=== PATIENT | male | born 1955 | race African-American/Black ===

== ENCOUNTER 2021-09-25 10:12 | Emergency (ER) | payer OTHER ==
--- OUTSIDE RECORDS SUMMARY | 2021-09-25 10:16 | XMS REPORT | Continuity of Care Document ---
:1955 Author Organization [facility] t Address [address] [place] [address] Care Team Providers Name Role Phone Doctor Unassigned, Name Attending Clinician Unavailable Lab, Fam Pob I Attending Clinician Unavailable Anene FOLDER INSPECTOR Attending Clinician ANENE Attending Clinician Unavailable Payers Payer Name Policy Type Policy Number Effective Date Expiration Date S ource Problems Condition Condition Condition Status Onset Resolution Last Treating Co mments Source Name Details Category Date Date Treatment Clinician Date Bipolar I Bipolar I Disease Active Uni vers disorder, disorder, 10-21 ity of most most 00:00: [place] recent recent Medical episode episode Branch (or (or current) current) depressed, depressed, severe, severe, specified specified as with as with psychotic psychotic behavior behavior Other, Other, Disease Active Univers mixed, or mixed, or 10-21 it[place] of [place] Medical nondepende nondepende Br anch nt drug nt drug abuse, abuse, continuous continuous Essential Essential Disease Active Uni vers hypertensi hypertensi 10-21 [place] y [place] Allergies, Adverse Reactions, Alerts Allergy Allergy Status Severity Reaction(s) Onset Inactive Treating Comm ents Source Name Type Date Date Clinician NO KNOWN Drug Active Univers ALLERGIE Class ity of S [facility] Social History Social Habit Start Date Stop Date Quantity Comments Source Sex Assigned At Uni versity [facility] Smoking Status Start Date Stop Date Source Unknown if ever smoked Universit y [facility] Medications Ordered Filled Start Stop Current Ordering Indication Dosage Frequency Signature Comments Components Source Medication Medication Date Date Medication? Clinician (SIG) Name Name ESCITALOPRA 2006-06 Yes Take 1 Univ ers M 20 MG 0-10 daily ity of ORAL TAB 00:00: [place] [facility] Branch LITHIUM 2006 Yes 2 Cap Oral Univ ers CARBONATE 0-10 BID ity of 300 MG ORAL 00:00: [place] CAP 00 Medical Branch HYDROCHLORO 2007 Yes 1 Tab Oral Univers THIAZIDE 25 0-10 DAILY ity of MG ORAL TAB 00:00: [place] 00 Medical Branch METOPROLOL 2007 Yes 1 Tab Oral U nivers SUCCINATE 0-10 DAILY ity of 25 MG ORAL 00:00: [place] [id number] 00 Medical Branch QUETIAPINE 2007 Yes 1 Tab Oral U nivers 100 MG ORAL 0-10 QHS ity of TAB 00:00: [place] 00 Medical Branch ESCITALOPRA 2006-06 Yes Take one Un brice M 10 MG 0-10 daily ity of ORAL TAB 00:00: [place] 00 Medical Branch ESCITALOPRA 2006-06 Yes Take 1 Univ ers M 20 MG 0-10 daily ity of ORAL TAB 00:00: [place] [id number] Medical Branch LITHIUM 2007- Yes 2 Cap Oral Univ ers CARBONATE 0-10 BID ity of 300 MG ORAL 00:00: [place] [facility] Medical Branch HYDROCHLORO 2007 Yes 1 Tab Oral Univers THIAZIDE 25 0-10 DAILY ity of MG ORAL TAB 00:00: [place] 00 Medical Branch METOPROLOL 2006-06 Yes 1 Tab Oral U nivers SUCCINATE 0-10 DAILY ity of 25 MG ORAL 00:00: [place] [facility] 00 Medical Branch QUETIAPINE 2007 Yes 1 Tab Oral U nivers 100 MG ORAL 0-10 QHS ity of TAB 00:00: [place] 00 Medical Branch ESCITALOPRA 2006-06 Yes Take one Un brice M 10 MG 0-10 daily ity of ORAL TAB 00:00: [place] 00 Medical Branch ESCITALOPRA 2006-06 Yes Take 1 Univ ers M 20 MG 0-10 daily ity of ORAL TAB 00:00: [place] 00 Medical Branch LITHIUM 2007- Yes 2 Cap Oral Univ ers CARBONATE 0-10 BID ity of 300 MG ORAL 00:00: [place] [facility] 00 Medical Branch HYDROCHLORO 2007- Yes 1 Tab Oral Univers THIAZIDE 25 0-10 DAILY ity of MG ORAL TAB 00:00: [place] [facility] METOPROLOL 2006-06 Yes 1 Tab Oral U nivers SUCCINATE 0-10 DAILY ity of 25 MG ORAL 00:00: [place] [facility] 00 Medical Branch QUETIAPINE 2007 Yes 1 Tab Oral U nivers 100 MG ORAL 0-10 QHS ity of TAB 00:00: [place] [facility] ESCITALOPRA 2006- Yes Take one Un brice M 10 MG 0-10 daily ity of ORAL TAB 00:00: [place] [facility] Procedures This patient has no known procedures. Encounters Start End Encounter Admission Attending Care Care Encounter Source Date/Time Date/Time Type Type Clinicians Facility Department ID 2020-01-06 2020-01-06 Patient Doctor [facility] [id number] Univers 00:00:00 00:00:00 Secure Msg Unassigned, PRIMARY [id number] it[id number] [facility] [id number] Ne dical [address] [place] 2020-01-03 2020-01-03 Laboratory Lab, Adc Fam Pob I [facility] [id number] Univers 08:11:03 08:31:03 Only Jennyfer Izaguirre [facility] [id number] [place]y of [place] [id number] [place] as Professio [phone] Ne dical nal [address] [place] [address] 2020-01-03 2020-01-03 Outpatient R [facility] [id number] Univers 08:20:00 08:20:00 JENNYFER ity of [facility] 2020-01-03 2020-01-03 Letter Doctor SADAF [id number] Univers 00:00:00 00:00:00 (Out) Unassigned, LINH [id number] ity of [place] [facility] [id number] [place] as [phone] [address] Results This patient has no known results.
[2021-09-25] MEDS ORDERED: NA CHLORIDE 0.9% 1,000 ML ONE (10:34)
[2021-09-25] MEDS ORDERED: ASPIRIN 81 MG CHEWABLE TABLET ONE (10:34)
[2021-09-25] MEDS ORDERED: MORPHINE 4 MG/ML SYR ONE (10:43)
[2021-09-25] MEDS ORDERED: ONDANSETRON 4 MG/2 ML VIAL ONE (10:43)
--- NOTE | 2021-09-25 10:53 | EDPHYS ---
Physician Documentation [facility] Name: Jose Hope Age: 66 yrs Sex: Male : 1955 Arrival Date: 09/25/2021 Time: 10:15 Bed 2 Private MD: Eric Duran ED Physician Isma Lewis HPI: 09/25 10:47 This 66 yrs old Black Male presents to ER via Ambulatory with complaints of High Blood christy Pressure, Chest Pain, Numbness. 10:47 The patient has elevated blood pressure and discovered this at home. Onset: The christy symptoms/episode began/occurred this morning, today. 10:48 Modifying factors: The symptoms are aggravated by activity. Associated signs and christy symptoms: Pertinent positives: weakness. Severity of symptoms: At its worst the blood pressure was moderate, in the emergency department the blood pressure is unchanged. The patient has experienced similar episodes in the past, multiple times. Historical: - Allergies: 10:31 No Known Allergies; ab2 - PMHx: 10:31 Hypertensive disorder; Hypercholesterolemia; ab2 - Immunization history:: Adult Immunizations up to date. - Social history:: Smoking status: Patient reports the use of cigarette tobacco products, smokes one pack cigarettes per day. - Family history:: not pertinent. ROS: 10:48 Constitutional: Negative for fever, chills, and weight loss, Eyes: Negative for injury, christy pain, redness, and discharge, ENT: Negative for injury, pain, and discharge, Neck: Negative for injury, pain, and swelling, Respiratory: Negative for shortness of breath, cough, wheezing, and pleuritic chest pain, Abdomen/GI: Negative for abdominal pain, nausea, vomiting, diarrhea, and constipation, Back: Negative for injury and pain, : Negative for injury, bleeding, discharge, and swelling, MS/Extremity: Negative for injury and deformity, Skin: Negative for injury, rash, and discoloration, Neuro: Negative for headache, weakness, numbness, tingling, and seizure, Psych: Negative for depression, anxiety, suicide ideation, homicidal ideation, and hallucinations, Allergy/Immunology: Negative for hives, rash, and allergies, Endocrine: Negative for neck swelling, polydipsia, polyuria, polyphagia, and marked weight changes, Hematologic/Lymphatic: Negative for swollen nodes, abnormal bleeding, and unusual bruising. 10:48 Cardiovascular: Positive for chest pain. Exam: 10:48 Constitutional: This is a well developed, well nourished patient who is awake, alert, christy and in no acute distress. Head/Face: Normocephalic, atraumatic. Eyes: Pupils equal round and reactive to light, extra-ocular motions intact. Lids and lashes normal. Conjunctiva and sclera are non-icteric and not injected. Cornea within normal limits. Periorbital areas with no swelling, redness, or edema. ENT: Nares patent. No nasal discharge, no septal abnormalities noted. Tympanic membranes are normal and external auditory canals are clear. Oropharynx with no redness, swelling, or masses, exudates, or evidence of obstruction, uvula midline. Mucous membranes moist. Neck: Trachea midline, no thyromegaly or masses palpated, and no cervical lymphadenopathy. Supple, full range of motion without nuchal rigidity, or vertebral point tenderness. No Meningismus. Chest/axilla: Normal chest wall appearance and motion. Nontender with no deformity. No lesions are appreciated. Cardiovascular: Regular rate and rhythm with a normal S1 and S2. No gallops, murmurs, or rubs. Normal PMI, no JVD. No pulse deficits. Respiratory: Lungs have equal breath sounds bilaterally, clear to auscultation and percussion. No rales, rhonchi or wheezes noted. No increased work of breathing, no retractions or nasal flaring. Abdomen/GI: Soft, non-tender, with normal bowel sounds. No distension or tympany. No guarding or rebound. No evidence of tenderness throughout. Back: No spinal tenderness. No costovertebral tenderness. Full range of motion. Male : Normal genitalia with no discharge or lesions. Skin: Warm, dry with normal turgor. Normal color with no rashes, no lesions, and no evidence of cellulitis. MS/ Extremity: Pulses equal, no cyanosis. Neurovascular intact. Full, normal range of motion. Neuro: Awake and alert, GCS 15, oriented to person, place, time, and situation. Cranial nerves II-XII grossly intact. Motor strength 5/5 in all extremities. Sensory grossly intact. Cerebellar exam normal. Normal gait. Psych: Awake, alert, with orientation to person, place and time. Behavior, mood, and affect are within normal limits. 10:58 ECG was reviewed by the Attending Physician. [facility] Vital Signs: 10:29 BP 189 / 108; Pulse 67; Resp 20; Temp 98.3(TE); Pulse Ox 99% on R/A; Weight 93.89 kg; ab2 Height 6 ft. 1 in. (185.42 cm); Pain 7/10; 10:45 BP 191 / 105; Pulse 63; Resp 14; Pulse Ox 99% on R/A; jg9 11:00 BP 186 / 106; Pulse 68; Resp 18; Pulse Ox 100% ; jg9 12:24 BP 183 / 97; Pulse 52; Resp 15; Pulse Ox 98% ; jl7 13:00 BP 193 / 101; Pulse 72; Resp 23 S; Pulse Ox 100% ; jg9 10:29 Body Mass Index 27.31 (93.89 kg, 185.42 cm) ab2 MDM: 10:24 Patient medically screened. [facility] 10:49 Data reviewed: vital signs, nurses notes, lab test result(s), EKG, radiologic studies, christy plain films. Data interpreted: patient safety attendant: rate is 67 beats/min, Pulse oximetry: is not applicable for this patient encounter. Test interpretation: by ED physician or midlevel provider: ECG, plain radiologic studies. Counseling: I had a detailed discussion with the patient and/or guardian regarding: the historical points, exam findings, and any diagnostic results supporting the discharge/admit diagnosis, lab results, radiology results. 14:06 ED course: pt refused to stay, will go home and follow up, accepts all risk, including christy , if its my time to go its my time. 09/25 10:26 Order name: Basic Metabolic Panel; Complete Time: 13:16 [facility] 09/25 10:26 Order name: CBC with Diff; Complete Time: 13:16 [facility] 09/25 10:26 Order name: LFT's; Complete Time: 13:16 christy 09/25 10:26 Order name: Magnesium; Complete Time: 13:16 christy 09/25 10:26 Order name: NT PRO-BNP; Complete Time: 13:16 [facility] 09/25 10:26 Order name: PT-INR; Complete Time: 13:16 christy 09/25 10:26 Order name: Troponin HS; Complete Time: 13:16 [facility] 09/25 10:26 Order name: Lipase; Complete Time: 13:16 [facility] 09/25 10:26 Order name: SARS-COV-2 RT PCR (Document "Date of Onset" if Symptomatic); Complete Time: [facility] 13:16 09/25 13:39 Order name: Basic Metabolic Panel [facility] 09/25 13:39 Order name: CBC with Automated Diff [facility] 09/25 13:39 Order name: Troponin High Sensitivity [facility] 09/25 10:26 Order name: XRAY Chest (1 view); Complete Time: 13:16 [facility] 09/25 10:26 Order name: EKG; Complete Time: 10:27 [facility] 09/25 13:39 Order name: CONS Physician Consult [facility] 09/25 13:39 Order name: Echo with Doppler [facility] 09/25 10:26 Order name: Cardiac monitoring; Complete Time: 10:42 [facility] 09/25 10:26 Order name: EKG - Nurse/Tech; Complete Time: 10:42 [facility] 09/25 10:26 Order name: IV Saline Lock; Complete Time: 10:42 [facility] 09/25 10:26 Order name: Labs collected and sent; Complete Time: 10:42 [facility] 09/25 10:26 Order name: O2 Sat Monitoring; Complete Time: 10:42 [facility] EC:58 Rate is 69 beats/min. Rhythm is regular. QRS [place] is Normal. [place] interval is normal. QRS christy interval is normal. QT interval is normal. No Q waves. T waves are Normal. No ST changes noted. Clinical impression: Normal ECG and No evidence of ischemia. Interpreted by me. Reviewed by me. Administered Medications: 10:41 Drug: Aspirin Chewable Tablet 324 mg Route: PO; jg9 11:05 Follow up: Response: No adverse reaction jg9 10:41 Drug: NS 0.9% 1000 ml Route: IV; Rate: 125 ml/hr; Site: right forearm; jg9 12:26 Follow up: IV Status: Infusion continued upon admission jl7 10:46 Drug: Zofran (Ondansetron) 4 mg Route: IVP; Site: right antecubital; jl7 11:21 Follow up: Response: No adverse reaction jg9 10:46 CANCELLED (Duplicate Order): morphine 4 mg IVP once; RASS on ADMIN: Combtv4, Very jl7 Agttd3, Agttd2, Rstlss1, AlertClm0, Drwsy-1, Lt Sdtn-2, Mod Sdtn-3, Dp Sdtn-4, UnArsble-5 10:46 CANCELLED (Duplicate Order): Zofran (Ondansetron) 4 mg IVP once; over 2 minutes jl7 10:47 Drug: morphine 4 mg Route: IVP; Site: right antecubital; jl7 11:21 Follow up: Response: No adverse reaction; Pain is decreased jg9 11:21 Drug: Lovenox (enoxaparin) 1 mg/kg Route: Sub-Q; Site: right lower abdomen; jg9 12:26 Follow up: Response: No adverse reaction jl7 13:00 Drug: hydrALAZINE 10 mg Route: IVP; Site: right antecubital; jl7 13:30 Follow up: Response: No adverse reaction; Blood pressure is unchanged jg9 13:00 Drug: hydrALAZINE 10 mg Route: PO; jl7 13:30 Follow up: Response: No adverse reaction; Blood pressure is unchanged jg9 Disposition Summary: 09/25/21 14:06 Discharge Ordered Location: Home(09/25/21 14:06) christy Problem: new(09/25/21 14:06) christy Symptoms: have improved(09/25/21 14:06) christy Condition: Stable(09/25/21 14:06) christy Diagnosis - Chest pain, unspecified(09/25/21 14:06) christy - Essential (primary) hypertension(09/25/21 14:06) christy - Tobacco abuse counseling(09/25/21 14:06) christy - Tobacco use(09/25/21 14:06) christy Followup: christy - With: Eric Duran MD - When: Upon discharge from the Emergency Department - Reason: Recheck today's complaints, Continuance of care, Re-evaluation by your physician Followup: christy - With: Miguel Nevarez MD - When: Upon discharge from the Emergency Department - Reason: Recheck today's complaints, Continuance of care, Re-evaluation by your physician Discharge Instructions: - Discharge Summary Sheet christy - Hypertension, Adult christy - Hypertension, Adult, [id number] christy - How to Take Your Blood Pressure, [id number] christy - Aspirin and Your Heart christy - Managing Your Hypertension christy Forms: - Medication Reconciliation Form christy - Thank You Letter christy - Antibiotic Education christy - Prescription Opioid Use christy Signatures: Dispatcher [employer] EDIsma Galindo MD MD cha Leal, Jahala RN RN jl7 Shannon Warren RN RN jg9 Oskar Dumont2 Corrections: (The following items were deleted from the chart) 10:46 10:46 morphine 4 mg IVP once; RASS on ADMIN: Combtv4, Very Agttd3, Agttd2, Rstlss1, jl7 AlertClm0, Drwsy-1, Lt Sdtn-2, Mod Sdtn-3, Dp Sdtn-4, UnArsble-5 ordered. jl7 10:46 10:46 Zofran (Ondansetron) 4 mg IVP once; over 2 minutes ordered. jl7 jl7 10:46 10:46 Zofran (Ondansetron) 4 mg IVP once; over 2 minutes ordered. jl7 jl7 14:05 10:52 Observation formerly [facility] 14:05 10:52 Jama Haynes formerly [facility] 14:05 10:52 Telemetry/MedSurg (observation) christy christy 14:05 10:52 Stable christy christy 14:05 10:52 new [facility] christy 14:05 10:52 have improved formerly [facility] 14:05 10:52 Standard christy christy 14:05 10:52 christy christy 14:05 10:52 Essential (primary) hypertension christy christy 14:05 10:52 Chest pain, unspecified christy christy 14:05 10:52 Tobacco abuse counseling christy christy 14:05 10:52 Tobacco use christy [facility]
--- NOTE | 2021-09-25 10:53 | ER ---
Nurse's Notes [facility] Name: Jose Hope Age: 66 yrs Sex: Male : 1955 Arrival Date: 09/25/2021 Time: 10:15 Bed 2 Private MD: Eric Duran Diagnosis: Chest pain, unspecified;Essential (primary) hypertension;Tobacco abuse counseling;Tobacco use Presentation: 09/25 10:29 Chief complaint: Patient states: "This morning around 9am I started having chest pain. ab2 I was having some numbness and tingling in my right arm and my fingers are going cold." Pt also states his BP was 220/120 at home. Coronavirus screen: Vaccine status: Patient reports receiving the 2nd dose of the covid vaccine. Client denies travel out of the [place] in the last 14 days. At this time, the client does not indicate any symptoms associated with coronavirus-19. Ebola Screen: Patient negative for fever greater than or equal to 101.5 degrees Fahrenheit, and additional compatible Ebola Virus Disease symptoms Patient denies exposure to infectious person. Patient denies travel to an Ebola-affected area in the 21 days before illness onset. No symptoms or risks identified at this time. Initial Sepsis Screen: Does the patient meet any 2 criteria? No. Patient's initial sepsis screen is negative. Does the patient have a suspected source of infection? No. Patient's initial sepsis screen is negative. Risk Assessment: Do you want to hurt yourself or someone else? Patient reports no desire to harm self or others. Onset of symptoms is unknown. 10:29 Method Of Arrival: Ambulatory ab2 10:29 Acuity: VÍCTOR 3 ab2 11:23 Acuity: VÍCTOR 2 jl7 Triage Assessment: 10:31 General: Appears in no apparent distress. comfortable, Behavior is calm, cooperative, ab2 appropriate for age. Pain: Complains of pain in chest. Cardiovascular: Reports chest pain, Patient's skin is warm and dry. Respiratory: Airway is patent Respiratory effort is even, unlabored, Respiratory pattern is regular, symmetrical. GI: No deficits noted. Historical: - Allergies: 10:31 No Known Allergies; ab2 - PMHx: 10:31 Hypertensive disorder; Hypercholesterolemia; ab2 - Immunization history:: Adult Immunizations up to date. - Social history:: Smoking status: Patient reports the use of cigarette tobacco products, smokes one pack cigarettes per day. - Family history:: not pertinent. Screenin:47 Abuse screen: Denies threats or abuse. Denies injuries from another. Nutritional jg9 screening: No deficits noted. Tuberculosis screening: No symptoms or risk factors identified. Fall Risk None identified. Assessment: 11:07 Pain: Pain does not radiate. Pain began 2 hours ago. jg9 11:15 Reassessment: Patient appears in no apparent distress at this time. Patient and/or jl7 family updated on plan of care and expected duration. Pain level reassessed. Patient is alert, oriented x 3, equal unlabored respirations, skin warm/dry/pink. Pain decreased rated, 3/10 at this time. Patient states feeling better. 13:30 Reassessment: Patient and/or family updated on plan of care and expected duration. Pain jg9 level reassessed. Patient is alert, oriented x 3, equal unlabored respirations, skin warm/dry/pink. Patient states feeling better. 14:00 Reassessment: Patient refusing to stay, demanded that I take out the IV and other jg9 equipment-patient reports he has not been told why he is staying so therefore he can go home and listen to the monitor beep-provider notified and went in to talk to the patient who continued to refuse to stay. Patient signed out AMA. Patient advised of the risks associated with leaving AMA up to and including -witness signature obtained from daughter who was present. Vital Signs: 10:29 BP 189 / 108; Pulse 67; Resp 20; Temp 98.3(TE); Pulse Ox 99% on R/A; Weight 93.89 kg; ab2 Height 6 ft. 1 in. (185.42 cm); Pain 7/10; 10:45 BP 191 / 105; Pulse 63; Resp 14; Pulse Ox 99% on R/A; jg9 11:00 BP 186 / 106; Pulse 68; Resp 18; Pulse Ox 100% ; jg9 12:24 BP 183 / 97; Pulse 52; Resp 15; Pulse Ox 98% ; jl7 13:00 BP 193 / 101; Pulse 72; Resp 23 S; Pulse Ox 100% ; jg9 10:29 Body Mass Index 27.31 (93.89 kg, 185.42 cm) ab2 ED Course: 10:15 Patient arrived in ED. ds1 10:15 Eric Duran MD is Private Physician. ds1 10:24 Isma Lewis MD is Attending Physician. christy 10:25 Reji Duran, RN is Primary Nurse. jl7 10:31 Triage completed. ab2 10:31 Arm band placed on right wrist. ab2 10:31 Patient maintains SpO2 saturation greater than 95% on room air. ab2 10:40 Inserted saline lock: 22 gauge in right forearm, using aseptic technique. Blood jg9 collected. 10:40 Initial lab(s) drawn, by ED staff, sent to lab. EKG done, by ED staff, reviewed by lois Lewis MD COVID swab sent to lab. 10:52 Jama Haynes MD is Hospitalizing Provider. christy 11:07 Patient has correct armband on for positive identification. Bed in low position. Call jg9 light in reach. Side rails up X 1. security monitor on. 11:32 XRAY Chest (1 view) In Process Unspecified. EDMS 14:05 Eric Duran MD is Referral Physician. christy 14:05 Miguel Nevarez MD is Referral Physician. christy 14:14 No provider procedures requiring assistance completed. jg9 Administered Medications: 10:41 Drug: Aspirin Chewable Tablet 324 mg Route: PO; jg9 11:05 Follow up: Response: No adverse reaction jg9 10:41 Drug: NS 0.9% 1000 ml Route: IV; Rate: 125 ml/hr; Site: right forearm; jg9 12:26 Follow up: IV Status: Infusion continued upon admission jl7 10:46 Drug: Zofran (Ondansetron) 4 mg Route: IVP; Site: right antecubital; jl7 11:21 Follow up: Response: No adverse reaction jg9 10:46 CANCELLED (Duplicate Order): morphine 4 mg IVP once; RASS on ADMIN: Combtv4, Very jl7 Agttd3, Agttd2, Rstlss1, AlertClm0, Drwsy-1, Lt Sdtn-2, Mod Sdtn-3, Dp Sdtn-4, UnArsble-5 10:46 CANCELLED (Duplicate Order): Zofran (Ondansetron) 4 mg IVP once; over 2 minutes jl7 10:47 Drug: morphine 4 mg Route: IVP; Site: right antecubital; jl7 11:21 Follow up: Response: No adverse reaction; Pain is decreased j9 11:21 Drug: Lovenox (enoxaparin) 1 mg/kg Route: Sub-Q; Site: right lower abdomen; jg9 12:26 Follow up: Response: No adverse reaction jl7 13:00 Drug: hydrALAZINE 10 mg Route: IVP; Site: right antecubital; jl7 13:30 Follow up: Response: No adverse reaction; Blood pressure is unchanged j9 13:00 Drug: hydrALAZINE 10 mg Route: PO; jl7 13:30 Follow up: Response: No adverse reaction; Blood pressure is unchanged j9 Outcome: 10:52 Decision to Hospitalize by Provider. [facility] 12:54 Patient left the ED. [facility] 14:06 Discharge ordered by . [facility] 14:14 AMA AMA form signed jg9 14:14 Condition: left AMA 14:16 Patient left the ED. jg9 Signatures: Dispatcher [employer] EDIsma Galindo MD MD cha Sanford, Demi ds1 Reji Duran RN RN jl7 Shannon Warren RN RN jg9 Oskar Dumont Corrections: (The following items were deleted from the chart) 11:20 11:20 Lovenox (enoxaparin) 1 mg/kg Sub-Q in right lower abdomen jg9 jg9 14:15 14:00 Reassessment: Patient refusing to stay, demanded that I take out the IV and other jg9 equipment-patient reports he has not been told why he is staying so therefore he can go home and listen to the monitor beep-provider notified and went in to talk to the patient who continued to refuse to stay. Patient signed out AMA. jg9
[2021-09-25 10:54] LABS: Absolute Lymphocytes (CBC) 3.7 K/uL (0.7-4.9); Hematocrit 48.6 % (39.6-49.0); Lymphocytes % 50.7 % (15.3-44.8); MPV 8.1 fL (7.6-11.3); Protime INR 1.05; RBC Red Blood Cell Count 5.32 M/uL (4.33-5.43)
[2021-09-25] MEDS ORDERED: ENOXAPARIN 100 MG/ML SYR SQ ONE (11:18)
[2021-09-25 11:24] LABS: ALT/SGPT 43 U/L (12-78); Albumin 3.9 g/dL (3.4-5.0); Alkaline Phosphatase 85 U/L (45-117); BUN Blood Urea Nitrogen 10 mg/dL (7-18); Bicarbonate 28 mmol/L (21-32); Bilirubin Total 0.5 mg/dL (0.2-1.0); Glucose Level 108 mg/dL (74-106); Lipase 684 U/L (73-393); NT PRO-BNP 62 pg/mL (<125); Protein, Total 8.7 g/dL (6.4-8.2); Sodium Level 139 mmol/L (136-145); Troponin High Sensitivity 12.8 pg/mL (<58.9)
[2021-09-25 11:25] LABS: AST/SGOT 30 U/L (15-37); Bilirubin Direct < 0.1 mg/dL (0-0.2); Magnesium 2.2 mg/dL (1.8-2.4); Potassium 4.3 mmol/L (3.5-5.1)
--- NOTE | 2021-09-25 11:48 | RAD REPORT ---
EXAM DESCRIPTION: RAD - Chest Single View - 09/25/2021 11:30 am CLINICAL HISTORY: CHEST PAIN Chest pain. COMPARISON: CHEST SINGLE VIEW dated 02/02/2014; CHEST PA AND LAT 2 VIEW dated 08/24/2012 FINDINGS: Portable technique limits examination quality. The lungs are grossly clear. The heart is normal in size. No displaced fractures. IMPRESSION: No acute intrathoracic process suspected.
[2021-09-25] MEDS ORDERED: HYDRALAZINE HCL 10 MG TABLET ONE (12:55)
[2021-09-25] MEDS ORDERED: HYDRALAZINE HCL 20 MG/ML VIAL ONE (12:55)
[2021-09-25] MEDS ORDERED: ACETAMINOPHEN 500 MG TAB PO PRN (13:34)
[2021-09-25] MEDS ORDERED: MORPHINE 2 MG/ML SYR IV PRN (14:05)
[2021-09-25 14:08] VITALS: TEMP 98.3
[2021-09-25 16:19] VITALS: BP 193/101; O2SAT 100
[2021-09-25] MEDS ORDERED: METOPROLOL TAR 25 MG TAB PO SCH (21:00)
[2021-09-26] MEDS ORDERED: ASPIRIN EC 81 MG TAB PO SCH (09:00)
[2021-09-26] MEDS ORDERED: ENOXAPARIN 40 MG/0.4 ML SQ SCH (09:00)
--- NOTE | 2021-09-28 09:46 | EKG ---
Test Date: 2021-09-25 Test Time: 10:37:19 Sas Programmer: DELFINO MEASUREMENT RESULTS: Intervals: Rate: 69 OR: 164 QRSD: 82 QT: 394 QTc: 422 [place]: P: 59 OR: 164 QRS: 42 T: 48 INTERPRETIVE STATEMENTS: Normal sinus rhythm Normal ECG Compared to ECG 02/02/2014 15:02:16 No significant changes Electronically Signed On 09-28-21 09:36:35 CDT by Miguel Nevarez
== END 2021-09-25 14:16 | disposition home or self-care (01) ==
LOC: ER 10:12
DX: I10 Essential (primary) hypertension (principal); Z72.0 Tobacco use; Z71.6 Tobacco abuse counseling; Z20.822 Contact with and (suspected) exposure to COVID-19
CPT/HCPCS: 96361; 93005; 85025; 80048; 36415; 83735; 85610; 80076; 84484; 83690; 83880; 71045; 96375; 96372; 96374; 99285; U0003; J0360; J1650; J7030; J2405

== ENCOUNTER 2021-11-30 08:30 | Emergency (ER) | payer OTHER ==
--- OUTSIDE RECORDS SUMMARY | 2021-11-30 08:33 | XMS REPORT | Continuity of Care Document ---
:1955 Author Organization [facility] t Address [address] [place] [id number] Care Team Providers Name Role Phone Doctor Unassigned, Name Attending Clinician Unavailable Lab, Fam Pob I Attending Clinician Unavailable Anene LION TRAINER Attending Clinician ANENE Attending Clinician Unavailable Payers [...] Active Univers ALLERGIE Class ity of [facility] Social History Social Habit Start Date Stop Date Quantity Comments Source Sex Assigned At Uni versity [facility] Smoking Status Start Date Stop Date Source Unknown if ever smoked Universit y [facility] Medications Ordered Filled Start Stop Current Ordering Indication Dosage Frequency Signature Comments Components Source Medication Medication Date Date Medication? Clinician (SIG) Name Name ESCITALOPRA 2006-06 Yes Take 1 Univ ers M 20 MG 0-10 daily ity of ORAL TAB 00:00: [place] [facility] Branch LITHIUM 2006 Yes 2 Cap Oral Univ ers CARBONATE 0-10 BID ity of 300 MG ORAL 00:00: [place] CAP 00 Medical Branch HYDROCHLORO 2007 Yes 1 Tab Oral Univers THIAZIDE 25 0-10 DAILY ity of MG ORAL TAB 00:00: [place] 00 Medical Branch METOPROLOL 2007 Yes 1 Tab Oral U nivers SUCCINATE 0-10 DAILY ity of 25 MG ORAL 00:00: [place] [id number] 00 Medical Branch QUETIAPINE 2007 Yes 1 Tab Oral U nivers 100 MG ORAL 0-10 QHS ity of TAB 00:00: [place] 00 Medical Branch ESCITALOPRA 2006-06 Yes Take one Un brice M 10 MG 0-10 daily ity of ORAL TAB 00:00: [place] 00 Medical Branch ESCITALOPRA 2006-06 Yes Take 1 Univ ers M 20 MG 0-10 daily ity of ORAL TAB 00:00: [place] [id number] Medical Branch LITHIUM 2007- Yes 2 Cap Oral Univ ers CARBONATE 0-10 BID ity of 300 MG ORAL 00:00: [place] [facility] Medical Branch HYDROCHLORO 2007 Yes 1 Tab Oral Univers THIAZIDE 25 0-10 DAILY ity of MG ORAL TAB 00:00: [place] 00 Medical Branch METOPROLOL 2006-06 Yes 1 Tab Oral U nivers SUCCINATE 0-10 DAILY ity of 25 MG ORAL 00:00: [place] [facility] 00 Medical Branch QUETIAPINE 2007 [...] ity of 300 MG ORAL 00:00: [place] [facility] 00 Medical Branch HYDROCHLORO 2007- Yes 1 Tab Oral Univers THIAZIDE 25 0-10 DAILY ity of MG ORAL TAB 00:00: [place] [facility] METOPROLOL 2006-06 Yes 1 Tab Oral U nivers SUCCINATE 0-10 DAILY ity of 25 MG ORAL 00:00: [place] [facility] 00 Medical Branch QUETIAPINE 2007 Yes 1 Tab Oral U nivers 100 MG ORAL 0-10 QHS ity of TAB 00:00: [place] [facility] ESCITALOPRA 2006- Yes Take one Un brice M 10 MG 0-10 daily ity of ORAL TAB 00:00: [place] [facility] Procedures This patient has no known procedures. Encounters Start End Encounter Admission Attending Care Care Encounter Source Date/Time Date/Time Type Type Clinicians Facility Department ID 2020-01-06 2020-01-06 Patient Doctor [facility] [id number] Univers 00:00:00 00:00:00 Secure Msg Unassigned, PRIMARY [id number] ity of [place] [id number] [phone] [place] dical [address] [place] 2020-01-03 2020-01-03 Laboratory Lab, Adc Fam Pob I [facility] [id number] Univers 08:11:03 08:31:03 Only Jennyfer Izaguirre [facility] [id number] ity of [place] [id number] [place] as Professio [phone] Ak dical nal [address] [place] [address] 2020-01-03 2020-01-03 Outpatient R [facility] [id number] Univers 08:20:00 08:20:00 JENNYFER ity of [facility] 2020-01-03 2020-01-03 Letter Doctor SADAF [id number] Univers 00:00:00 00:00:00 (Out) Unassigned, LINH [id number] ity of [place] [facility] [id number] Eze as [phone] [address] Results This patient has no known results.
[2021-11-30 09:19] LABS: Absolute Lymphocytes (CBC) 3.2 K/uL (0.7-4.9); Hematocrit 47.9 % (39.6-49.0); Lymphocytes % 31.5 % (15.3-44.8); MPV 8.2 fL (7.6-11.3)
[2021-11-30 09:27] LABS: Protime INR 1.13
[2021-11-30 09:38] LABS: Bilirubin Direct 0.2 mg/dL (0-0.2); Bilirubin Total 0.6 mg/dL (0.2-1.0); Magnesium 2.1 mg/dL (1.8-2.4); Potassium 3.4 mmol/L (3.5-5.1); Protein, Total 8.8 g/dL (6.4-8.2)
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
[2021-11-30 15:21] VITALS: TEMP 98.3
[2021-11-30 15:31] VITALS: O2SAT 96
[2021-11-30 15:33] VITALS: BP 169/102
--- NOTE | 2021-12-01 11:09 | EKG ---
Test Date: 2021-11-30 Test Time: 08:54:41 Facetor: BP MEASUREMENT RESULTS: Intervals: Rate: 90 CO: 144 QRSD: 80 QT: 372 QTc: 455 [place]: P: 43 CO: 144 QRS: 7 T: 46 INTERPRETIVE STATEMENTS: Normal sinus rhythm Possible Left atrial enlargement Left ventricular hypertrophy with repolarization abnormality Abnormal ECG Compared to ECG 09/25/2021 10:37:19 Left ventricular hypertrophy now present Early repolarization now present Electronically Signed On 12-01-21 11:05:09 CDT by Miguel Nevarez
== END 2021-11-30 14:57 | disposition home or self-care (01) ==
LOC: ER 08:30
DX: R07.9 Chest pain, unspecified (principal); I10 Essential (primary) hypertension; E78.00 Pure hypercholesterolemia, unspecified; F31.9 Bipolar disorder, unspecified; F17.210 Nicotine dependence, cigarettes, uncomplicated
CPT/HCPCS: 36415; 71045; 80048; 80076; 83735; 83880; 84484; 85025; 85610; 93005; 99284

== ENCOUNTER 2022-11-26 07:47 | Emergency (ER) | payer OTHER ==
--- OUTSIDE RECORDS SUMMARY | 2022-11-26 07:50 | XMS REPORT | Continuity of Care Document ---
:1955 Author Organization [facility] t Address [address] [place] [address] Care Team Providers Name Role Phone CLAUDIA SINGH Primary Care Physician Unavailable MIREYA HERNÁNDEZ Attending Clinician Unavailable NITESH SINGH Attending Clinician Unavailable Nitesh Singh DO Attending Clinician KEVIN RUSSO Attending Clinician Unavailable Kevin Russo MD Attending Clinician Doctor Unassigned, [place] Attending Clinician Unavailable Lab, Adc Fam Pob I Attending Clinician Unavailable Lindsay Tripp Attending Clinician LINDSAY IZAGUIRRE Attending Clinician Unavailable VIVI CLAIRE Attending Clinician Unavailable NITESH SINGH Admitting Clinician Unavailable JOY CHAPMAN Admitting Clinician Unavailable VIVI PATEL Admitting Clinician Unavailable Payers Payer Name Policy Type Policy Number Effective Date Expiration Date Constance RENE/[facility] DUAL [id number] 2022 00:00:00 COMP HMO D SNP [facility] [place] [id number] 2013 00:00:00 PLUS Problems Condition Condition Condition Status Onset Resolution Last Treating Co mments Source Name Details Category Date Date Treatment Clinician Date Bipolar I Bipolar I Disease Active 2006- Uni vers disorder, disorder, 5-04 ity of most most 00:00: [place] recent Medical episode episode Branch (or (or [...] Drug Active Univers ALLERGIE Class ity of [facility] Social History Social Habit Start Date Stop Date Quantity Comments Source Exposure to 2022-05-05 2022-05-15 Not sure [facility] SARS-CoV-2 (event) 00:00:00 11:14:00 Medica l Branch Sex Ass[birth year] [facility] 00:00:00 00:00:00 Medical Branch Smoking Status Start Date Stop Date Source Tobacco smoking consumption [facility] Medical unknown Branch Medications Ordered Filled Start Stop Current Ordering Indication Dosage Frequency Signature Comments Components Source Medication Medication Date Date Medication? Clinician (SIG) Name Name aspirin 2021-06 Yes 325mg 325 mg, Univer s tablet 325 07-16 Oral, ity of mg 15:00: DAILY, [place] First dose Medical on [place] Branch 05/16/22 at 0900, Until Discontinu ed, Routine cloNIDine 2021-06- No .1mg 0.1 mg, Univ ers (CATAPRES) 07-15 Oral, ity of tablet 0.1 18:15: 18:29 ONCE, 1 Eze as mg 00 :00 dose, On Medical Sat Branch 05/15/22 at 1215, STAT predniSONE 2021-06 Yes [id number] 60mg Take 3 Univers 20 mg 0-10 tablets by ity of tablet 00:00: mouth every Medical morning. Branch predniSONE 2021-06 Yes [id number] 60mg Take 3 Univers 20 mg 0-10 tablets by ity of tablet 00:00: mouth [place] 00 every Medical morning. Branch diphenhydrA 2021-06- No [id number] 25mg Take 1 Univers MINE 0-10 10-16 tablet by ity of (BENADRYL 00:00: 04:59 mouth [place] ALLERGY) 25 00 :00 every 6 Medic al mg tablet (six) Branch hours as needed for Allergies for up to 5 days. permethrin 2021-06- No [id number] Apply to Univers 1 % lotion 0-10 10-11 area(s) ity o f 00:00: 04:59 once now [place] 00 :00 for 1 Medical dose. Branch follow package directions ESCITALOPRA 2006-06 Yes Take 1 Univ ers M 20 MG 0-10 daily ity of ORAL TAB 00:00: [place] [address] Medical Branch LITHIUM 2006-06 Yes 2 Cap Oral Univ ers CARBONATE 0-10 BID ity of 300 MG ORAL 00:00: [place] [address] Medical Branch HYDROCHLORO 2006-06 Yes 1 Tab Oral Univers THIAZIDE 25 0-10 DAILY ity of MG ORAL TAB 00:00: [place] [address] Medical Branch METOPROLOL 2006-06 Yes 1 Tab Oral U nivers SUCCINATE 0-10 DAILY ity of 25 MG ORAL 00:00: [place] [address] 00 Medical Branch QUETIAPINE 2006-06 Yes 1 Tab Oral U nivers 100 MG ORAL 0-10 QHS ity of TAB 00:00: [place] [address] Medical Branch ESCITALOPRA 2006-06 Yes Take one Un brice M 10 MG 0-10 daily ity of ORAL TAB 00:00: [place] [address] Medical Branch ESCITALOPRA 2006-06 Yes Take 1 Univ ers M 20 MG 0-10 daily ity of ORAL TAB 00:00: [place] [address] Medical Branch LITHIUM 2006- Yes 2 Cap Oral Univ ers CARBONATE 0-10 BID ity of 300 MG ORAL 00:00: [place] [address] Medical Branch HYDROCHLORO 2006-06 Yes 1 Tab Oral Univers THIAZIDE 25 0-10 DAILY ity of MG ORAL TAB 00:00: [place] [address] Medical Branch METOPROLOL 2006-06 Yes 1 Tab Oral U nivers SUCCINATE 0-10 DAILY ity of 25 MG ORAL 00:00: [facility] 00 Medical Branch QUETIAPINE 2006-06 Yes 1 Tab Oral U nivers 100 MG ORAL 0-10 QHS ity of TAB 00:00: [place] [address] Medical Branch ESCITALOPRA 2006-06 Yes Take one Un brice M 10 MG 0-10 daily ity of ORAL TAB 00:00: [place] 00 Medical Branch ESCITALOPRA 2006-06 Yes Take 1 Univ ers M 20 MG 0-10 daily ity of ORAL TAB 00:00: [place] 00 Medical Branch LITHIUM 2007- Yes 2 Cap Oral Univ ers CARBONATE 0-10 BID ity of 300 MG ORAL 00:00: [facility] 00 Medical Branch HYDROCHLORO 2007- Yes 1 Tab Oral Univers THIAZIDE 25 0-10 DAILY ity of MG ORAL TAB 00:00: [place] 00 Medical Branch METOPROLOL 2006-06 Yes 1 Tab Oral U nivers SUCCINATE 0-10 DAILY ity of 25 MG ORAL 00:00: [place] [address] 00 Medical Branch QUETIAPINE 2006-06 Yes 1 Tab Oral U nivers 100 MG ORAL 0-10 QHS ity of TAB 00:00: [place] 00 Medical Branch ESCITALOPRA 2006-06 Yes Take one Un brice M 10 MG 0-10 daily ity of ORAL TAB 00:00: [place] [address] Medical Branch ESCITALOPRA 2006-06 Yes Take 1 Univ ers M 20 MG 0-10 daily ity of ORAL TAB 00:00: [place] [address] Medical Branch LITHIUM 2006-06 Yes 2 Cap Oral Univ ers CARBONATE 0-10 BID ity of 300 MG ORAL 00:00: [facility] 00 Medical Branch HYDROCHLORO 2007 Yes 1 Tab Oral Univers THIAZIDE 25 0-10 DAILY ity of MG ORAL TAB 00:00: [place] [address] Medical Branch METOPROLOL 2007 Yes 1 Tab Oral U nivers SUCCINATE 0-10 DAILY ity of 25 MG ORAL 00:00: [place] [address] 00 Medical Branch QUETIAPINE 2007 Yes 1 Tab Oral U nivers 100 MG ORAL 0-10 QHS ity of TAB 00:00: [place] 00 Medical Branch METOPROLOL 2007 Yes 1 Tab Oral U nivers SUCCINATE 0-10 DAILY ity of 25 MG ORAL 00:00: [place] [address] 00 Medical Branch QUETIAPINE 2007- Yes 1 Tab Oral U nivers 100 MG ORAL 0-10 QHS ity of TAB 00:00: [place] [address] Medical Branch ESCITALOPRA 2006-06 Yes Take one Un brice M 10 MG 0-10 daily ity of ORAL TAB 00:00: [place] [address] Medical Branch ESCITALOPRA 2006-06 Yes Take 1 Univ ers M 20 MG 0-10 daily ity of ORAL TAB 00:00: [address] Branch LITHIUM 2006- Yes 2 Cap Oral Univ ers CARBONATE 0-10 BID ity of 300 MG ORAL 00:00: [place] CAP [address] [place] [address] Branch HYDROCHLORO 2006-06 Yes 1 Tab Oral Univers THIAZIDE 25 0-10 DAILY ity of MG ORAL TAB 00:00: [address] Branch ESCITALOPRA 2006-06 Yes Take one Un brice M 10 MG 0-10 daily ity of ORAL TAB 00:00: [place] [address] Medical [place] Vital Signs Vital Name Observation Time Observation Value Comments Source BMI 2022-05-15 27.71 kg/m2 [facility] 16:56:00 [facility] Oxygen saturation 2022-05-15 97 /min [facility] Arterial blood 16:56:00 [facility] [place] [facility] by Pulse oximetry Branch Systolic blood 2022-05-15 195 mm[Hg] University of pressure 16:56:00 [facility] Diastolic blood 2022-05-15 122 mm[Hg] [place] o f pressure 16:56:00 [facility] Heart rate 2022-05-15 91 /min [facility] 16:56:00 [facility] Body temperature 2022-05-15 36.72 Lidia [facility] 16:56:00 [facility] Respiratory rate 2022-05-15 16 /min [facility] 16:56:00 [facility] Body height 2022-05-15 185.4 cm [facility] 16:56:00 [facility] Body weight 2022-05-15 95.255 kg [facility] 16:56:00 [facility] Systolic blood 2022-03-29 167 mm[Hg] Pt has not taken Universit y of pressure 10:17:00 morning BP [facility] Diastolic blood 2022-03-29 102 mm[Hg] Pt has not taken Universi ty of pressure 10:17:00 morning BP [facility] Heart rate 2022-03-29 93 /min [place] of 10:17:00 [facility] Body temperature 2022-03-29 36.5 Lidia [place] of 10:17:00 [facility] Respiratory rate 2022-03-29 18 /min [facility] 10:17:00 [facility] Body height 2022-03-29 182.9 cm [facility] 10:17:00 [facility] Body weight 2022-03-29 95.255 kg [place] of 10:17:00 [facility] BMI 2022-03-29 28.48 kg/m2 [facility] 10:17:00 [facility] Oxygen saturation 2022-03-29 98 /min [facility] Arterial blood 10:17:00 [facility] [place] [facility] by Pulse oximetry Branch Procedures Procedure Date / Time Performed Performing Clinician hWit sofia XR HIPS 3 VW RIGHT 2022-05-15 18:00:04 Nitesh Singh [facility] XR CHEST 1 VW 2022-05-15 17:11:46 Singer [facility] LIPASE 2022-05-15 17:03:00 Singer [facility] MAGNESIUM 2022-05-15 17:03:00 Singer [facility] TROPONIN I 2022-05-15 17:03:00 Singer [facility] COMP. METABOLIC PANEL 2022-05-15 17:03:00 Nitesh Singh [facility] ([id number]) Medical [place] CBC WITH DIFF 2022-05-15 17:03:00 Singer [facility] N-TERMINAL PRO-BNP 2022-05-15 17:03:00 Singer [facility] CONSENT/REFUSAL FOR 2022-05-15 16:50:31 Doctor Unassigned, No [facility] [place] DIAGNOSIS AND Name Medical Branch TREATMENT NOTICE OF PRIVACY 2022-03-29 11:02:13 Doctor Unassigned, No Univ ersity [facility] PRACTICES Name Medical [place] CONSENT/REFUSAL FOR 2022-03-29 10:05:48 [facility] AND Name Medical [place] TREATMENT Encounters Start End Encounter Admission Attending Care Care Encounter Source Date/Time Date/Time Type Type Clinicians Facility Department ID 2022-07-22 2022-07-22 Outpatient R BETTY, [facility] [id number] Univers 10:40:00 10:40:00 MIREYA bruno [facility] 2022-07-07 2022-07-07 Outpatient R BETTY, [facility] [id number] Univers 14:20:00 14:20:00 MIREYA bruno [facility] 2022-06-10 2022-06-10 Outpatient R BETTY, [facility] [id number] Univers 10:00:00 10:00:00 MIREYA bruno o f [facility] 2022-05-15 2022-05-15 Emergency X , [facility] ERT [id number] Univers 10:57:00 12:39:00 NITESH bruno [facility] [place] [facility] 2022-05-15 2022-05-15 Emergency [facility] [id number] Univers 10:57:00 12:39:00 Nitesh BURK 350.1.13.10 i ty [place] [id number] [address] 2022-03-29 2022-03-29 Emergency [facility] [id number] Univers 05:21:00 06:17:00 KEVIN bruno [facility] [place] [facility] 2022-03-29 2022-03-29 Emergency [facility] [id number] Univers 05:21:00 06:17:00 Kevin BURK 350.1.13.10 i ty [place] [phone] [address] 2020-01-06 2020-01-06 Patient Doctor [facility] [id number] Univers 00:00:00 00:00:00 Secure Msg Unassigned, PRIMARY 350.1.13.10 ity of [place] [phone] Ia dical 042 [place] 2020-01-03 2020-01-03 Laboratory Lab, Adc Fam Pob I [facility] 1.2. [id number] Univers 08:11:03 08:31:03 Only Lindsay Izaguirre 350.1.13.10 ity of [place] 4.2.7.2.686 Eze as Professio [phone] Ia dical nal [address] [place] [address] 2020-01-03 2020-01-03 Outpatient R SAMANTHA [facility] [id number] Univers 08:20:00 08:20:00 LINDSAY bruno [facility] [place] [facility] 2020-01-03 2020-01-03 Letter Doctor SADAF [id number] Univers 00:00:00 00:00:00 (Out) Unassigned, LINH 350.1.13.10 ity of [place] [facility] 4.2.7.2.686 Eze as [phone] [address] 2007-03-27 2007-03-29 Inpatient X STONE, [facility] PSY [id number] Univers 18:07:00 12:00:00 VIVI 8 ity [facility] [place] [facility] 2006-10-21 2006-10-28 Inpatient X STONE, [facility] PSY [id number] Univers 15:04:00 13:49:00 VIVI [facility] Results Test Description Test Time Test Comments Results Result Comments Source CBC WITH DIFF 2022-05-15 18:07:31 Test Item Value Reference Range Interpretation Comme nts WBC (test code = 6690-2) See_Comment [A utomated message] The system which [employer] nerated this result transmit petty reference range: 4.20 - 1 0.70 10*3/?L. The reference r ami was not used to interpr et this result as normal/abnor mal. RBC (test code = 789-8) See_Comment [Au tomated message] The system which [employer] nerated this result transmit petty reference range: 4.26 - 5 .52 10*6/?L. The reference r ami was not used to interpr et this result as normal/abnor mal. HGB (test code = 718-7) 14.2 g/dL 12.2-16.4 HCT (test code = 4544-3) 43.4 % 38.4-49.3 MCV (test code = 787-2) 91.4 fL 81.7-95.6 MCH (test code = 785-6) 29.9 pg 26.1-32.7 MCHC (test code = 786-4) 32.7 g/dL 31.2-35.0 RDW-SD (test code = 02140-3) 48.9 fL 38.5-51.6 RDW-CV (test code = 788-0) 14.5 % 12.1-15.4 PLT (test code = 777-3) See_Comment H [Au tomated message] The system which ge nerated this result transmit petty reference range: 150 - 32 8 10*3/?L. The reference range was not used to interpret th is result as normal/abnormal . MPV (test code = 43338-6) 9.5 fL 9.8-13.0 L NRBC/100 WBC (test code = See_Comment [ Automated message] The 1305996295) system which ge nerated this result transmit petty reference range: 0.0 - 10 .0 /100 WBCs. The reference r ami was not used to interpr et this result as normal/abnor mal. NRBC x10^3 (test code = See_Comment [Au tomated message] The 9742828798) system which ge nerated this result transmit petty reference range: 10*3/?L. The reference range was not u sed to interpret this result as normal/abnormal . GRAN MAT (NEUT) % (test code 32.3 % = 770-8) IMM GRAN % (test code = 0.10 % 6635804590) LYMPH % (test code = 736-9) 53.9 % MONO % (test code = 5905-5) 9.3 % EOS % (test code = 713-8) 3.7 % BASO % (test code = 706-2) 0.7 % GRAN MAT x10^3(ANC) (test 2.62 10*3/uL 1.99-6.95 code = 0629952499) IMM GRAN x10^3 (test code = 0.00-0.06 7493444192) LYMPH x10^3 (test code = 4.38 10*3/uL 1.09-3.23 H 731-0) MONO x10^3 (test code = 0.76 10*3/uL 0.36-1.02 742-7) EOS x10^3 (test code = 0.30 10*3/uL 0.06-0.53 711-2) BASO x10^3 (test code = 0.06 10*3/uL 0.01-0.09 704-7) SHAMIKA CELLS (test code = 2+ See_Comment A [Au tomated message] The 7790-9) system which ge nerated this result transmit petty reference range: (none). The reference range was not u sed to interpret this result as normal/abnormal . HJ BODIES (test code = Present A 7793-3) SCHISTOCYTES (test code = 1+ A 800-3) TARGET CELLS (test code = 2+ See_Comment A [ Automated message] The 44391-7) system which [employer] nerated this result transmit petty reference range: (none). The reference range was not u sed to interpret this result as normal/abnormal . LG GRAN LYMPHS (test code = Rare Rare 7450717255) REACT LYMPHS (test code = Moderate 8236613343) GIANT PLATELETS (test code = Present See_Comment A [Automated message] The 5908-9) system which [employer] nerated this result transmit petty reference range: (none). The reference range was not u sed to interpret this result as normal/abnormal . Lab Interpretation (test Abnormal code = 01969-3) [id number]19 Test Item Value Reference Interpretation Comments Range TROPONIN I (test 0.004 ng/mL See_Comment [Automated code = 4535394993) message] The system which generated this result transmitted reference range : <=0.034. The reference range was not used to interpret this result as normal/abnormal . ROLAND (test code = Reference (Normal) ROLAND) Range (defined by the 99th percentile reference limit): <= 0.034 ng/mL Note: Cardiac troponin begins to rise 3-4 hours after the onset of ischemia. Repeat in 4-6 hours if the sample was drawn within 3-4 hours of the onset of the symptom and found normal. Diagnosis of myocardial injury is made with acute changes in cTn concentrations with at least one serial sample above the 99th percentile upper reference limit (URL), taken together with the patient's clinical presentation. Biotin has been reported to cause a negative bias, interpret results relative to patient's use of biotin. Lab Interpretation Normal (test code = 93395-1) [facility] [id number]-[id number] 17:32:58 Test Item Value Reference Range Interpretation Comments NT-proBNP (test code 33 pg/mL See_Comment [Autom ated = 2442933766) message] The system which generated this result transmitted reference range : <=125. The reference range was not used to interpret this result as normal/abnormal . ROLAND (test code = ROLAND) Biotin has been reported to cause a negative bias, interpret results relative to patient's use of biotin. Lab Interpretation Normal (test code = 10502-8) [facility] 17:24:20 Test Item Value Reference Range Interpretation Comments MAGNESIUM (test code = 1107101343) 2.1 mg/dL 1.7-2.4 Lab Interpretation (test code = Normal 40503-5) [facility]. METABOLIC PANEL (75571)2022-05-15 17:24:00 Test Item Value Reference Range Interpretation Comments NA (test code = 138 mmol/L 135-145 6408555550) K (test code = 4.7 mmol/L 3.5-5.0 3460278272) CL (test code = 106 mmol/L 98-108 9323681882) CO2 TOTAL (test code = 26 mmol/L 23-31 3428479694) AGAP (test code = 2-16 8992114333) BUN (test code = 15 mg/dL 7-23 8571817167) GLUCOSE (test code = 118 mg/dL 70-110 H 5943343716) CREATININE (test code = 0.87 mg/dL 0.60-1.25 2480496611) TOTAL BILI (test code = 0.7 mg/dL 0.1-1.8 7735494073) CALCIUM (test code = 8.9 mg/dL 8.6-10.6 1601129168) T PROTEIN (test code = 7.3 g/dL 6.3-8.2 5923088849) ALBUMIN (test code = 4.3 g/dL 3.5-5.0 8861474424) ALK PHOS (test code = 53 U/L 34-122 9672057318) ALTv (test code = 20 U/L 5-50 1742-6) AST(SGOT) (test code = 27 U/L 13-40 6255302458) eGFR (test code = mL/min/1.73m2 0432305322) ROLAND (test code = ROLAND) Association of Glomerular Filtration Rate (GFR) and Staging of Kidney Disease* + --+ --+ ------+| GFR (mL/min/1.73 m2) ?| With Kidney Damage ?| ?Without Kidney Damage+ --------+ --------+ +| ?>90 ?| ?Stage one ?| ? Normal ?+ ---+ ---+ -------+| ?60-89 ?| ?Stage two ?| ? Decreased GFR ? + --+ --+ ------+| ?30-59 ?| ?Stage three ?| ? Stage three ? + --+ --+ ------+| ?15-29 ?| ?Stage four ? | ? Stage four ?+ ---+ ---+ -------+| ?<15 (or dialysis) ? ?| ?Stage five ? | ? Stage five ?+ ---+ ---+ -------+ *Each stage assumes the associated GFR level has been in effect for at least three months. ?Stages 1 to 5, with or without kidney disease, indicate chronic kidney disease. Notes: Determination of stages one and two (with eGFR >59mL/min/1.73 m2) requires estimation of kidney damage for at least three months as defined by structural or functional abnormalities of the kidney, manifested by either:Pathological abnormalities or Markers of kidney damage (including abnormalities in the composition of the blood or urine or abnormalities in imaging tests). Lab Interpretation Abnormal (test code = 12336-5) [facility] 17[facility]23:40 Test Item Value Reference Range Interpretation Comments LIPASE (test code = 9970446640) 111 U/L 0-220 Lab Interpretation (test code = Normal 54034-3) [facility]"
[2022-11-26] MEDS ORDERED: LEVALBUTEROL 1.25 MG/3 ML NEB ONE (08:20)
[2022-11-26] MEDS ORDERED: lisinopriL 20 MG TAB ONE (08:21)
--- NOTE | 2022-11-26 09:14 | RAD REPORT ---
EXAM DESCRIPTION: RAD - Chest Single View - 11/26/2022 8:30 am CLINICAL HISTORY: cough, sob Chest pain. COMPARISON: Chest Single View dated 11/30/2021; Chest Single View dated 09/25/2021; CHEST SINGLE VIEW d ated 02/02/2014; CHEST PA AND LAT 2 VIEW dated 08/24/2012 FINDINGS: Portable technique limits examination quality. The lungs are grossly clear. The heart is normal in size. No displaced fractures. IMPRESSION: No acute intrathoracic process suspected.
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
[2022-11-26] MEDS ORDERED: dexAMETHasone 10 MG/ML VIAL ONE (10:02)
[2022-11-26 10:40] VITALS: BP 176/99; TEMP 98.5; O2SAT 100
== END 2022-11-26 10:32 | disposition home or self-care (01) ==
LOC: ER 07:47
DX: R05.9 Cough, unspecified (principal); F17.210 Nicotine dependence, cigarettes, uncomplicated; I10 Essential (primary) hypertension; Z20.822 Contact with and (suspected) exposure to COVID-19
CPT/HCPCS: 87635; 87804 ×2; 71045; 96372; 99285; J7614; J1100

== ENCOUNTER 2023-09-16 07:48 | Emergency (ER) | payer OTHER ==
--- OUTSIDE RECORDS SUMMARY | 2023-09-16 07:52 | XMS REPORT | Continuity of Care Document ---
Author Name Unknown Address [address] [facility] [address] [place] [address] [facility] Address [address] [facility] [place] [place] [address] Care Team Providers Care Electrotype Finisher Name Role Phone CLAUDIA SINGH Primary Care Physician Unavailab MIREYA Xie Attending Clinician Unavailable NITESH SINGH Attending Clinician Unavailable Nitesh Singh DO Attending Clinician [phone] KEVIN RUSSO Attending Clinician Unavailable Kevin Russo MD Attending Clinician [phone] Doctor Unassigned, [place] Attending Clinician U navailable Lab, Adc Fam Pob I Attending Clinician Unavailab Lindsay Izquierdo Attending Clinician [phone] LINDSAY SINGH Attending Clinician Unavailable VIVI CLAIRE Attending Clinician Unavailable NITESH SINGH Admitting Clinician Unavailable JOY CHAPMAN Admitting Clinician VIVI Valverde Admitting Clinician Unavailquintin sofia Payers Payer Name Policy Type Policy Number Effective Date Expirati on Date Source [facility] DUAL COMP HMO D SNP [id number] 2022 00:00:00 [facility] [place] [id number] 2013 00:00:00 Problems Condition Name Condition Details Condition Category Status Onset Date Resolution Date Last Treatment Date Treating Clinician Comments Source Bipolar I disorder, most recent episode (or current) depressed, severe, specified as with psychotic behavior Bipolar I disorder, most recent episode (or current) depressed, severe, specified as with psychotic behavior Disease Active 10-21 00:00: 00 [facility] Other, mixed, or unspecifie d nondepende nt drug abuse, continuous Other, mixed, or unspecifie d nondepende nt drug abuse, continuous Disease Active 10-21 00:00: 00 [facility] Essential hypertensi on, benign Essential hypertensi on, benign Disease Active 10-21 00:00: 00 [facility] Allergies, Adverse Reactions, Alerts Allergy Name Allergy Type Status Severity Reaction(s) Onset Date Inactive Date Treating Clinician Comments Source NO KNOWN ALLERGIE S Drug Class Active [facility] Social History Social Habit Start Date Stop Date Quantity Comments Source Exposure to SARS-CoV-2 (event) 2022-05-05 00:00:00 2022-05-15 11:14:[address] [facility] Sex Assigned At 1955 00:00:00 1955 00:00:00 [facility] Smoking Status Start Date Stop Date Source Tobacco smoking consumption unknown [facility] Medications Ordered Medication Name Filled Medication Name Start Date Stop Date Current Medication? Ordering Clinician Indication Dosage Frequency Signature (SIG) Comments Components Source aspirin tablet 325 mg 2021-06 15:00: 00 Yes 325mg 325 mg, Oral, DAILY, First dose on 05/16/22 at 0900, Until Discontinu ed, Routine [facility] cloNIDine (CATAPRES) tablet 0.1 mg 2021-06 18:15: 00 05-15 18:29 :00 No .1mg 0.1 mg, Oral, ONCE, 1 dose, On 05/15/22 at 1215, STAT [facility] predniSONE 20 mg tablet 2021-06 010 00:00: 00 Yes [id number] 60mg Take 3 tablets by mouth every morning. [facility] predniSONE 20 mg tablet 2021-06 0 00:00: 00 Yes [id number] 60mg Take 3 tablets by mouth every morning. [facility] diphenhydrA MINE (BENADRYL ALLERGY) 25 mg tablet 2021-06 00:00: 00 04-04 04:59 :00 No [id number] 25mg Take 1 tablet by mouth every 6 (six) hours as needed for Allergies for up to 5 days. [facility] permethrin 1 % lotion 2021-06 00:00: 00 03-30 04:59 :00 No [id number] Apply to area(s) once now for 1 dose. follow package directions [facility] ESCITALOPRA M 20 MG ORAL TAB 2006-06 00:00: 00 Yes Take 1 daily [facility] 300 MG ORAL CAP 2006-06 00:00: 00 Yes 2 Cap Oral BID [facility] HYDROCHLORO THIAZIDE 25 MG ORAL TAB 2006-06 00:00: 00 Yes 1 Tab Oral DAILY [facility] METOPROLOL SUCCINATE 25 MG ORAL TB24 2006-06 00:00: 00 Yes 1 Tab Oral DAILY [facility] QUETIAPINE 100 MG ORAL TAB 2006-06 00:00: 00 Yes 1 Tab Oral QHS [facility] ESCITALOPRA M 10 MG ORAL TAB 2006-06 00:00: 00 Yes Take one daily [facility] ESCITALOPRA M 20 MG ORAL TAB 2006-06 00:00: 00 Yes Take 1 daily [facility] LITHIUM CARBONATE 300 MG ORAL CAP 2006-06 00:00: 00 Yes 2 Cap Oral BID [facility] HYDROCHLORO THIAZIDE 25 MG ORAL TAB 2006-06 00:00: 00 Yes 1 Tab Oral DAILY [facility] METOPROLOL SUCCINATE 25 MG ORAL TB24 2006-06 00:00: 00 Yes 1 Tab Oral DAILY [facility] QUETIAPINE 100 MG ORAL TAB 2006-06 00:00: 00 Yes 1 Tab Oral QHS [facility] ESCITALOPRA M 10 MG ORAL TAB 2006-06 00:00: 00 Yes Take one daily [facility] ESCITALOPRA M 20 MG ORAL TAB 2006-06 0 00:00: 00 Yes Take 1 daily [facility] LITHIUM CARBONATE 300 MG ORAL CAP 2006-06 0 00:00: 00 Yes 2 Cap Oral BID [facility] HYDROCHLORO THIAZIDE 25 MG ORAL TAB 2006-06 0 00:00: 00 Yes 1 Tab Oral DAILY [facility] METOPROLOL SUCCINATE 25 MG ORAL TB24 2006-06 0 00:00: 00 Yes 1 Tab Oral DAILY [facility] QUETIAPINE 100 MG ORAL TAB 2006-06 0 00:00: 00 Yes 1 Tab Oral QHS [facility] ESCITALOPRA M 10 MG ORAL TAB 2006-06 0 00:00: 00 Yes Take one daily [facility] ESCITALOPRA M 20 MG ORAL TAB 2006-06 0 00:00: 00 Yes Take 1 daily [facility] LITHIUM CARBONATE 300 MG ORAL CAP 2006-06 00:00: 00 Yes 2 Cap Oral BID [facility] HYDROCHLORO THIAZIDE 25 MG ORAL TAB 2006-06 0 00:00: 00 Yes 1 Tab Oral DAILY [facility] METOPROLOL SUCCINATE 25 MG ORAL TB24 2006-06 0 00:00: 00 Yes 1 Tab Oral DAILY [facility] QUETIAPINE 100 MG ORAL TAB 2006-06 0 00:00: 00 Yes 1 Tab Oral QHS [facility] METOPROLOL SUCCINATE 25 MG ORAL TB24 2006-06 0 00:00: 00 Yes 1 Tab Oral DAILY [facility] QUETIAPINE 100 MG ORAL TAB 2006-06 0 00:00: 00 Yes 1 Tab Oral QHS [facility] ESCITALOPRA M 10 MG ORAL TAB 2006-06 0 00:00: 00 Yes Take one daily [facility] ESCITALOPRA M 20 MG ORAL TAB 2006-06 0 00:00: 00 Yes Take 1 daily [facility] LITHIUM CARBONATE 300 MG ORAL CAP 2006-06 0 00:00: 00 Yes 2 Cap Oral BID [facility] HYDROCHLORO THIAZIDE 25 MG ORAL TAB 2006-06 00:00: 00 Yes 1 Tab Oral DAILY [facility] ESCITALOPRA M 10 MG ORAL TAB 2006-06 00:00: 00 Yes Take one daily [facility] Vital Signs Vital Name Observation Time Observation Value Comments S ource BMI 2022-05-15 16:56:00 27.71 kg/m2 [facility] Oxygen saturation in Arterial blood by Pulse oximetry 2022-05-15 16:56:00 97 /min [facility] Systolic blood pressure 2022-05-15 16:56:00 195 mm[Hg] [facility] Diastolic blood pressure 2022-05-15 16:56:00 122 mm[Hg] [facility] Heart rate 2022-05-15 16:56:00 91 /min [facility] Body temperature 2022-05-15 16:56:[address] [facility] Respiratory rate 2022-05-15 16:56:00 16 /min [facility] Body height 2022-05-15 16:56:[address] [facility] Body weight 2022-05-15 16:56:[address] [facility] Systolic blood pressure 2022-03-29 10:17:00 167 mm[Hg] Pt has not taken morning BP medication [facility] Diastolic blood pressure 2022-03-29 10:17:00 102 mm[Hg] Pt has not taken morning BP medication [facility] Heart rate 2022-03-29 10:17:00 93 /min [facility] Body temperature 2022-03-29 10:17:[address] [facility] Respiratory rate 2022-03-29 10:17:00 18 /min [facility] Body height 2022-03-29 10:17:[address] [facility] Body weight 2022-03-29 10:17:[address] [facility] BMI 2022-03-29 10:17:00 28.48 kg/m2 [facility] Oxygen saturation in Arterial blood by Pulse oximetry 2022-03-29 10:17:00 98 /min [facility] Procedures Procedure Date / Time Performed Performing Clinicia n Source XR HIPS 3 VW RIGHT 2022-05-15 18:00:[address] [facility] XR CHEST 1 VW 2022-05-15 17:11:46 Nitesh Singh [facility] LIPASE 2022-05-15 17:03:00 Nitesh Singh [facility] MAGNESIUM 2022-05-15 17:03:00 [facility] TROPONIN I 2022-05-15 17:03:00 Nitesh Singh [facility] COMP. METABOLIC PANEL (40315) 2022-05-15 17:03:[address] [facility] CBC WITH DIFF 2022-05-15 17:03:00 Nitesh Singh [facility] N-TERMINAL PRO-BNP 2022-05-15 17:03:[address] [facility] CONSENT/REFUSAL FOR DIAGNOSIS AND TREATMENT 2022-05-15 16:50:31 Doctor Unassigned, [place] [facility] NOTICE OF PRIVACY PRACTICES 2022-03-29 11:02:13 Doctor Unassigned, [place] [facility] CONSENT/REFUSAL FOR DIAGNOSIS AND TREATMENT 2022-03-29 10:05:48 Doctor Unassigned, [place] [facility] Encounters Start Date/Time End Date/Time Encounter Type Admission Type Attending Clinicians Care Facility Care Department Encounter ID Source 2022-07-22 10:40:00 2022-07-22 10:40:00 Outpatient MIREYA LEUNG [facility] [id number] [facility] 2022-07-07 14:20:00 2022-07-07 14:20:00 Outpatient MIREYA LEUNG [facility] [id number] [facility] 2022-06-10 10:00:00 2022-06-10 10:00:00 Outpatient MIREYA LEUNG [facility] [id number] [facility] 2022-05-15 10:57:00 2022-05-15 12:39:00 Emergency X NITESH SINGH [facility] ERT [id number] [facility] 2022-05-15 10:57:00 2022-05-15 12:39:00 Emergency Nitesh Singh [facility] 1.0.114 [id number] [facility] 2022-03-29 05:21:00 2022-03-29 06:17:00 Emergency X KEVIN RUSSO [facility] ERT [id number] [facility] 2022-03-29 05:21:00 2022-03-29 06:17:00 Emergency Karan Kevni [facility] 1.0.114 [id number] [id number] [id number] [facility] 2020-01-06 00:00:00 2020-01-06 00:00:00 Patient Secure Msg Doctor Unassigned, [place] [facility] 1..114 [id number] [id number] [id number] [facility] 2020-01-03 08:11:03 2020-01-03 08:31:03 Laboratory Only Lab, Adc Fam Pob I Lindsay Singh [facility] [address] 1.114 [id number] [id number] [id number] [facility] 2020-01-03 08:20:00 2020-01-03 08:20:00 Outpatient R LINDSAY SINGH [facility] [id number] [facility] 2020-01-03 00:00:00 2020-01-03 00:00:00 Letter (Out) Doctor Unassigned, [place] [facility] 1.114 350.1.13.10 [id number] [id number] [facility] 2007-03-27 18:07:00 2007-03-29 12:00:00 Inpatient X VIVI CLAIRE [facility] PSY [id number] [facility] 2006-10-21 15:04:00 2006-10-28 13:49:00 Inpatient X VIVI CLAIRE [facility] PSY [id number] [facility] Results Test Description Test Time Test Comments Results Result Co mments Source [facility] [id number] 17:36:19* Test Item Value Reference Range Interpretation Comments TROPONIN I (test code = 6847483265) 0.004 ng/mL See_Comment [Automated message] The system which generated this result transmitted reference range: <=0.034. The reference range was not used to interpret this result as normal/abnormal. ROLAND (test code = ROLAND) Reference (Normal) Range (defined by the 99th percentile reference [...] to patient's use of biotin. Lab Interpretation (test code = 00093-9) Normal [facility] [id number] 17:32:58* Test Item Value Reference Range Interpretation Comme nts NT-proBNP (test code = 8482183671) 33 pg/mL See_Comment [Automated message] The system which generated this result transmitted reference range: <=125. The reference range was not used to interpret this result as normal/abnormal. ROLAND (test code = ROLAND) Biotin has been reported to cause a negative bias, interpret results relative to patient's use of biotin. Lab Interpretation (test code = 81262-4) Normal [facility]22-[facility]-26 17:24:20* Test Item Value Reference Range Interpretation Comme nts MAGNESIUM (test code = 9937849424) 2.1 mg/dL 1.7-2.4 Lab Interpretation (test cod e = 82685-2) Normal [facility] (82001)2022-05-15 17:24:00* Test Item Value Reference Range Interpretation Comme nts NA (test code = 9680187352) 138 mmol/L 135-145 K (test code = 5169568643) 4.7 mmol/L 3.5-5.0 CL (test code = 7008914941) 106 mmol/L 98-108 CO2 TOTAL (test code = 4527690987) 26 mmol/L 23-31 AGAP (test code = 2965543580) 2-16 BUN (test code = 2600940182) 15 mg/dL 7-23 GLUCOSE (test code = 3620219880) 118 mg/dL 70-110 H CREATININE (test code = 4460261836) 0.87 mg/dL 0.60-1.25 TOTAL BILI (test code = 9773610501) 0.7 mg/dL 0.1-1.1 CALCIUM (test code = 5325685439) 8.9 mg/dL 8.6-10.6 T PROTEIN (test code = 8346319415) 7.3 g/dL 6.3-8.2 ALBUMIN (test code = 3233870896) 4.3 g/dL 3.5-5.0 ALK PHOS (test code = 3121907792) 53 U/L 34-122 ALTv (test code = 1742-6) 20 U/L 5-50 AST(SGOT) (test code = 8701306719) 27 U/L 13-40 eGFR (test code = 7061808399) mL/min/1.73m2 ROLAND (test code = ROLAND) Association of [...] or abnormalities in imaging tests). Lab Interpretation (test code = 51537-2) Abnormal [facility] 17:23:40* Test Item Value Reference Range Interpretation Comme nts LIPASE (test code = 3031042174) 111 U/L 0-220 Lab Interpretation (test cod e = 33663-1) Normal [facility]"
[2023-09-16] MEDS ORDERED: ASPIRIN 81 MG CHEWABLE TABLET ONE (08:08)
--- NOTE | 2023-09-16 08:13 | RAD REPORT ---
EXAM DESCRIPTION: RAD - Chest Single View - 09/16/2023 8:08 am CLINICAL HISTORY: CHEST PAIN Chest pain. COMPARISON: <Comparisons> FINDINGS: Portable technique limits examination quality. The lungs are grossly clear. The heart is normal in size. No displaced fractures. IMPRESSION: No acute intrathoracic process suspected.
[2023-09-16 08:44] LABS: Absolute Basophils 0.1 K/uL (0-0.5); Absolute Eosinophils 0.1 K/uL (0-0.5); Absolute Lymphocytes (CBC) 3.8 K/uL (0.7-4.9); Absolute Monocytes 0.9 K/uL (0.1-1.3); Absolute Neutrophil 2.9 K/uL (1.8-8.0); Basophils % 0.9 % (0-1.3); Eosinophils % 1.4 % (0-4.4); Hematocrit 47.5 % (39.6-49.0); Hemoglobin 15.7 g/dL (13.6-17.9); Lymphocytes % 49.2 % (15.3-44.8); MCHC 33.1 g/dL (32.0-36.0); MCV 93.9 fL (80-100); MPV 8.4 fL (7.6-11.3); Monocytes % 11.5 % (3.3-12.3); Platelets 359 thou/uL (152-406); RBC Red Blood Cell Count 5.06 M/uL (4.33-5.43); Red Cell Distribution Width 15.5 % (12.1-15.2)
[2023-09-16 08:59] LABS: Albumin 3.6 g/dL (3.4-5.0); Albumin/Globulin Ratio 0.9 (1.1-1.8); Bilirubin Direct 0.2 mg/dL (0-0.2); Bilirubin Indirect, Calculated 0.6 mg/dL (0.2-0.8); Bilirubin Total 0.8 mg/dL (0.2-1.0); Globulin 4.2 g/dL (2.3-3.5); Magnesium 2.3 mg/dL (1.6-2.4); Protein, Total 7.8 g/dL (6.4-8.2); Troponin High Sensitivity 12.3 pg/mL (<58.9)
[2023-09-16 09:03] LABS: Protime INR 1.09
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
[2023-09-16 11:45] VITALS: BP 147/106; TEMP 98; O2SAT 99
--- NOTE | 2023-09-17 09:40 | EKG ---
Test Date: 2023-09-16 Test Time: 07:47:08 [employer]: ALP MEASUREMENT RESULTS: Intervals: Rate: 84 WA: 136 QRSD: 92 QT: 376 QTc: 444 [place]: P: 71 WA: 136 QRS: 59 T: 79 INTERPRETIVE STATEMENTS: Normal sinus rhythm Normal ECG Compared to ECG 11/30/2021 08:54:41 Left ventricular hypertrophy no longer present Early repolarization no longer present Electronically Signed On 09-17-23 09:38:27 CDT by Wilmer Michel
== END 2023-09-16 10:54 | disposition home or self-care (01) ==
LOC: ER 07:48
DX: R07.9 Chest pain, unspecified (principal); I10 Essential (primary) hypertension
CPT/HCPCS: 36415; 71045; 80048; 80076; 83735; 83880; 84484; 85025; 85379; 85610; 93005; 99285